=== PATIENT | female | born 1965 | race African-American/Black ===

== ENCOUNTER 2021-08-23 11:45 | Inpatient (IN) ==
[2021-08-23 14:12] LABS: Bacteria,Urine Many /HPF (Few); Glucose,Urine (UA) 100 mg/dL (Negative); Ketones,Urine 40 mg/dL (Negative); Protein,Urine 100 mg/dL (Negative); RBC,Urine 17 /HPF (0-4); Squamous Epithelial Cell,Urine Many /HPF (0-10); Urine Appearance Slightly Cloudy (Clear); Urine Color Dark Yellow (Yellow); Urine Specific Gravity 1.025 (1.001-1.035)
[2021-08-23 14:13] LABS: Bilirubin,Urine Large mg/dL (Negative); Blood, Urine Moderate mg/dL (Negative); Nitrite,Urine Negative (Negative); Urine Urobilinogen 0.2 eU/dL (<2.0)
[2021-08-23 14:23] LABS: Basophils % 0.7 % (0.0-0.8); Eosinophils # 0.1 10*3/uL (0.0-0.87); Eosinophils % 0.8 % (0.00-10.9); Hematocrit 40.1 VOL% (35.7-47.0); Hemoglobin 13.3 GM/DL (12.0-16.0); Immature Granulocytes % 0.2 %; Immature Granulocytes Absolute 0.01 #; Lymphocytes # 1.9 10*3/uL (1.4-4.0); Lymphocytes % 31.5 % (21.3-54.2); Mean Corpuscular HGB Conc 33.2 GM/DL (32-36); Mean Corpuscular Volume 88.5 FL (87-102); Mean Platelet Volume 12.9 FL (9.6-12.0); Monocytes # 0.4 10*3/uL (0.11-0.8); Monocytes % 6.9 % (1.7-12.7); Neutrophils % 59.9 % (38.7-73.9); Platelet Count 226 T/CUMM (130-400); Red Blood Count 4.53 MC/CUMM (3.8-5.5); Red Cell Distribution Width 16.2 % (9.3-17.3); White Blood Count 5.9 T/CUMM (4-12)
[2021-08-23] MEDS ORDERED: LABETALOL 20 MG/4 ML SYRINGE IV STA (14:32)
[2021-08-23 14:36] LABS: INR 1.4; PT Patient Result 14.8 SECS (10.5-12.0)
[2021-08-23] MEDS ORDERED: hydrALAZINE 20 MG/1 ML VIAL IV STA ×2 (14:37→15:03)
[2021-08-23 14:38] LABS: Albumin 3.5 G/DL (3.4-5.0); Calcium 9.8 MG/DL (8.5-10.1); Osmolality,Calculated 278.7 MOS/KG (273-304); Potassium 3.1 MMOL/L (3.5-5.1); Total Protein 7.8 G/DL (6.4-8.2)
[2021-08-23 14:45] LABS: Bilirubin,Total 18.2 MG/DL (0.20-1.00)
[2021-08-23] MEDS ORDERED: cloNIDine 0.1 MG TABLET PO STA (15:26)
[2021-08-23] MEDS ORDERED: PIPERACILLIN/TAZOBACTAM 3,375 MG in SODIUM CHLORIDE 0.9% 100 ML IV STA (16:45)
[2021-08-23] MEDS ORDERED: DEXTROSE 10% 250 ML BAG IV PRN (17:43)
[2021-08-23] MEDS ORDERED: GLUCAGON 1 MG VIAL IM PRN (17:43)
[2021-08-23] MEDS ORDERED: ONDANSETRON 4 MG/2 ML VIAL IV PRN (17:43)
[2021-08-23 19:26] LABS: Albumin 3.4 G/DL (3.4-5.0); Bilirubin,Direct 13.35 MG/DL (0.0-0.20); Total Protein 8.2 G/DL (6.4-8.2)
[2021-08-23 19:30] LABS: Bilirubin,Indirect 4.3 MG/DL (0.0-1.0); Bilirubin,Total 17.6 MG/DL (0.20-1.00)
[2021-08-23] MEDS: SODIUM CHLORIDE 0.9% 1,000 ML IV SCH (19:55)
[2021-08-23] MEDS: cefTRIAXone 1,000 MG in SODIUM CHLORIDE 0.9% 100 ML IV SCH (22:17)
[2021-08-24 06:16] LABS: Basophils # 0.1 10*3/uL (0.0-0.2); Basophils % 0.7 % (0.0-0.8); Eosinophils % 0.4 % (0.00-10.9); Hematocrit 32.8 VOL% (35.7-47.0); Hemoglobin 11.3 GM/DL (12.0-16.0); Immature Granulocytes % 0.3 %; Immature Granulocytes Absolute 0.02 #; Lymphocytes # 1.7 10*3/uL (1.4-4.0); Lymphocytes % 24.6 % (21.3-54.2); Mean Corpuscular HGB Conc 34.5 GM/DL (32-36); Mean Corpuscular Volume 87.5 FL (87-102); Monocytes # 0.8 10*3/uL (0.11-0.8); Monocytes % 11.7 % (1.7-12.7); Neutrophils % 62.3 % (38.7-73.9); Platelet Count 185 T/CUMM (130-400); Red Blood Count 3.75 MC/CUMM (3.8-5.5); Red Cell Distribution Width 16.4 % (9.3-17.3); White Blood Count 6.9 T/CUMM (4-12)
[2021-08-24 07:30] LABS: Albumin 2.8 G/DL (3.4-5.0); Calcium 9.3 MG/DL (8.5-10.1); Osmolality,Calculated 283.4 MOS/KG (273-304); Potassium 3.2 MMOL/L (3.5-5.1); Risk Ratio 21.36; Thyroid Stimulating Hormone 1.05 uIU/ml (0.358-3.74); Total Protein 6.2 G/DL (6.4-8.2)
[2021-08-24 07:48] LABS: Bilirubin,Total 14.7 MG/DL (0.20-1.00)
[2021-08-24] MEDS ORDERED: POTASSIUM CHLORIDE 20 MEQ TABLET PO ONE ×2 (08:55→16:21)
[2021-08-24] MEDS: PANTOPRAZOLE 40 MG VIAL IV SCH (09:51)
[2021-08-24] MEDS: POTASSIUM CHLORIDE RIDER 10 MEQ/100 ML PREMIX IV PRN ×2 (10:05→12:08)
[2021-08-24 10:19] LABS: AFP Tumor 4.3 NG/ML (0-8); Carcinoembryonic Antigen 1.7 NG/ML (0.0-5.0)
[2021-08-24 10:51] LABS: Hepatitis B Core IgM Quant 0.12 Index; Hepatitis B Surface Ag Quant < 0.10 Index; Hepatitis B Surface Ag Result Non-Reactive (NonReactive); Hepatitis C Virus Ab Quant < 0.02 Index; Hepatitis C Virus Ab Result Non-Reactive (NonReactive)
[2021-08-24] MEDS: SODIUM CHLORIDE 0.9% 1,000 ML IV SCH ×2 (12:11→21:22)
[2021-08-24] MEDS ORDERED: SODIUM CHLOR 0.9% KCL 20 MEQ 20 MEQ/1,000 ML BAG IV SCH (14:00)
[2021-08-24] MEDS: hydrALAZINE 20 MG/1 ML VIAL IV PRN (17:44)
[2021-08-24] MEDS: cefTRIAXone 1,000 MG in SODIUM CHLORIDE 0.9% 100 ML IV SCH (20:11)
[2021-08-24] MEDS: EZETIMIBE 10 MG TABLET PO SCH (20:12)
[2021-08-25 06:14] LABS: Basophils # 0.1 10*3/uL (0.0-0.2); Basophils % 1.1 % (0.0-0.8); Eosinophils # 0.1 10*3/uL (0.0-0.87); Eosinophils % 1.5 % (0.00-10.9); Hematocrit 34.5 VOL% (35.7-47.0); Hemoglobin 11.8 GM/DL (12.0-16.0); Lymphocytes # 2.2 10*3/uL (1.4-4.0); Lymphocytes % 29.8 % (21.3-54.2); Mean Corpuscular HGB Conc 34.2 GM/DL (32-36); Mean Corpuscular Volume 86.9 FL (87-102); Mean Platelet Volume 13.9 FL (9.6-12.0); Monocytes # 0.7 10*3/uL (0.11-0.8); Monocytes % 9.6 % (1.7-12.7); Neutrophils % 57.6 % (38.7-73.9); Platelet Count 207 T/CUMM (130-400); Red Blood Count 3.97 MC/CUMM (3.8-5.5); Red Cell Distribution Width 17.2 % (9.3-17.3); White Blood Count 7.5 T/CUMM (4-12)
[2021-08-25 06:21] LABS: INR 1.4
[2021-08-25 06:26] LABS: Calcium 9.4 MG/DL (8.5-10.1); Osmolality,Calculated 287.3 MOS/KG (273-304); Potassium 3.4 MMOL/L (3.5-5.1)
[2021-08-25 06:40] LABS: Eosinophils 4 % (0-10); Lymphocytes 20 % (20-55); Platelet Estimate Adequate
[2021-08-25 06:41] LABS: Target Cells Slight
[2021-08-25] MEDS ORDERED: INDOMETHACIN SUPP 50 MG SUPP RECTAL ONE (08:00)
[2021-08-25] MEDS: PANTOPRAZOLE 40 MG VIAL IV SCH (09:51)
[2021-08-25 09:57] LABS: Albumin 2.9 G/DL (3.4-5.0); Calcium 9.4 MG/DL (8.5-10.1); Osmolality,Calculated 286.3 MOS/KG (273-304); Potassium 3.3 MMOL/L (3.5-5.1)
[2021-08-25 10:08] LABS: Bilirubin,Direct 12.86 MG/DL (0.0-0.20); Total Protein 7.1 G/DL (6.4-8.2)
[2021-08-25 10:12] LABS: Bilirubin,Indirect 4.1 MG/DL (0.0-1.0)
[2021-08-25] MEDS: LACTATED RINGERS 1,000 ML IV SCH (11:57)
[2021-08-25] MEDS ORDERED: LABETALOL 20 MG/4 ML SYRINGE IV ONE (12:00)
[2021-08-25] MEDS: hydrALAZINE 20 MG/1 ML VIAL IV PRN ×2 (12:06→12:32)
[2021-08-25] MEDS ORDERED: amLODIPine 10 MG TABLET PO ONE (12:30)
[2021-08-25] MEDS ORDERED: MIDAZOLAM 2 MG/2 ML VIAL ONE (12:39)
[2021-08-25] MEDS ORDERED: fentaNYL 100 MCG/2 ML VIAL ONE (12:39)
[2021-08-25] MEDS ORDERED: LIDOCAINE 2% 5 ML VIAL ONE (13:46)
[2021-08-25] MEDS ORDERED: propofoL 200 MG/20 ML VIAL IV ONE (13:46)
[2021-08-25] MEDS ORDERED: SUCCINYLCHOLINE 200 MG/10 ML VIAL ONE (13:47)
[2021-08-25] MEDS ORDERED: ROCURONIUM 50 MG/5 ML VIAL IV ONE (13:47)
[2021-08-25] MEDS ORDERED: SEVOFLURANE 1 UNIT/15 MINUTE INH ONE (13:47)
[2021-08-25] MEDS: SODIUM CHLORIDE 0.9% 1,000 ML IV SCH ×3 (20:18→23:54)
[2021-08-25] MEDS: cefTRIAXone 1,000 MG in SODIUM CHLORIDE 0.9% 100 ML IV SCH (21:15)
[2021-08-25] MEDS: EZETIMIBE 10 MG TABLET PO SCH (21:15)
[2021-08-26] MEDS: hydrALAZINE 20 MG/1 ML VIAL IV PRN (00:29)
[2021-08-26 06:00] LABS: Basophils % 0.4 % (0.0-0.8); Eosinophils # 0.1 10*3/uL (0.0-0.87); Eosinophils % 1.2 % (0.00-10.9); Hematocrit 32.7 VOL% (35.7-47.0); Hemoglobin 10.8 GM/DL (12.0-16.0); Immature Granulocytes % 0.5 %; Immature Granulocytes Absolute 0.04 #; Lymphocytes # 2.4 10*3/uL (1.4-4.0); Lymphocytes % 29.2 % (21.3-54.2); Mean Corpuscular Volume 90.1 FL (87-102); Mean Platelet Volume 13.7 FL (9.6-12.0); Monocytes # 0.9 10*3/uL (0.11-0.8); Monocytes % 10.8 % (1.7-12.7); Neutrophils % 57.9 % (38.7-73.9); Platelet Count 177 T/CUMM (130-400); Red Blood Count 3.63 MC/CUMM (3.8-5.5); White Blood Count 8.1 T/CUMM (4-12)
[2021-08-26 06:22] LABS: Eosinophils 3 % (0-10); Lymphocytes 32 % (20-55); Total Cells Counted 100
[2021-08-26 06:23] LABS: Platelet Estimate Normal
[2021-08-26 07:10] LABS: Albumin 2.9 G/DL (3.4-5.0); Bilirubin,Direct 5.2 MG/DL (0.0-0.20); Bilirubin,Total 7.4 MG/DL (0.20-1.00); Calcium 9.1 MG/DL (8.5-10.1); Osmolality,Calculated 283.3 MOS/KG (273-304); Potassium 3.1 MMOL/L (3.5-5.1); Total Protein 6.3 G/DL (6.4-8.2)
[2021-08-26] MEDS ORDERED: POTASSIUM CHLORIDE 20 MEQ TABLET PO ONE (08:43)
[2021-08-26] MEDS: amLODIPine 10 MG TABLET PO SCH (09:31)
[2021-08-26] MEDS: PANTOPRAZOLE 40 MG VIAL IV SCH (09:35)
[2021-08-26] MEDS: LACTATED RINGERS 1,000 ML IV SCH (10:11)
[2021-08-26] MEDS: SODIUM CHLORIDE 0.9% 1,000 ML IV SCH ×2 (11:15→22:01)
[2021-08-26] MEDS: cefTRIAXone 1,000 MG in SODIUM CHLORIDE 0.9% 100 ML IV SCH (20:47)
[2021-08-26] MEDS: EZETIMIBE 10 MG TABLET PO SCH (20:47)
[2021-08-27] MEDS: SODIUM CHLORIDE 0.9% 1,000 ML IV SCH (00:35)
[2021-08-27 05:19] LABS: Basophils # 0.1 10*3/uL (0.0-0.2); Basophils % 0.9 % (0.0-0.8); Eosinophils # 0.2 10*3/uL (0.0-0.87); Hematocrit 32.1 VOL% (35.7-47.0); Hemoglobin 10.4 GM/DL (12.0-16.0); Immature Granulocytes % 0.3 %; Immature Granulocytes Absolute 0.02 #; Lymphocytes # 2.5 10*3/uL (1.4-4.0); Lymphocytes % 35.2 % (21.3-54.2); Mean Corpuscular HGB Conc 32.4 GM/DL (32-36); Mean Corpuscular Volume 92.5 FL (87-102); Mean Platelet Volume 13.4 FL (9.6-12.0); Monocytes # 0.7 10*3/uL (0.11-0.8); Monocytes % 10.2 % (1.7-12.7); Neutrophils % 50.4 % (38.7-73.9); Platelet Count 174 T/CUMM (130-400); Red Blood Count 3.47 MC/CUMM (3.8-5.5); Red Cell Distribution Width 15.6 % (9.3-17.3); White Blood Count 7.1 T/CUMM (4-12)
[2021-08-27 05:43] LABS: Albumin 2.6 G/DL (3.4-5.0); Bilirubin,Total 5.5 MG/DL (0.20-1.00); Calcium 8.8 MG/DL (8.5-10.1); Osmolality,Calculated 280.4 MOS/KG (273-304); Potassium 3.2 MMOL/L (3.5-5.1); Total Protein 6.4 G/DL (6.4-8.2)
[2021-08-27] MEDS ORDERED: POTASSIUM CHLORIDE 20 MEQ TABLET PO ONE (07:40)
[2021-08-27] MEDS ORDERED: POTASSIUM CHLORIDE 20 MEQ TABLET PO SCH (09:00)
[2021-08-27] MEDS: LACTATED RINGERS 1,000 ML IV SCH (09:22)
[2021-08-27 09:27] LABS: Folate 9.2 NG/ML (5.38-24.0)
[2021-08-27] MEDS: PANTOPRAZOLE 40 MG VIAL IV SCH (09:29)
[2021-08-27] MEDS: amLODIPine 10 MG TABLET PO SCH (09:29)
[2021-08-27] MEDS: LOSARTAN 25 MG TABLET PO SCH (09:29)
[2021-08-27] MEDS: EZETIMIBE 10 MG TABLET PO SCH (20:48)
[2021-08-27] MEDS: cefTRIAXone 1,000 MG in SODIUM CHLORIDE 0.9% 100 ML IV SCH (20:56)
[2021-08-28 06:18] LABS: Basophils # 0.1 10*3/uL (0.0-0.2); Basophils % 1.2 % (0.0-0.8); Eosinophils # 0.3 10*3/uL (0.0-0.87); Eosinophils % 3.3 % (0.00-10.9); Hematocrit 33.6 VOL% (35.7-47.0); Hemoglobin 10.6 GM/DL (12.0-16.0); Immature Granulocytes % 0.3 %; Immature Granulocytes Absolute 0.02 #; Lymphocytes # 2.6 10*3/uL (1.4-4.0); Lymphocytes % 34.2 % (21.3-54.2); Mean Corpuscular HGB Conc 31.5 GM/DL (32-36); Mean Corpuscular Volume 95.5 FL (87-102); Mean Platelet Volume 14.2 FL (9.6-12.0); Monocytes # 0.9 10*3/uL (0.11-0.8); Monocytes % 11.8 % (1.7-12.7); Neutrophils % 49.2 % (38.7-73.9); Platelet Count 199 T/CUMM (130-400); Red Blood Count 3.52 MC/CUMM (3.8-5.5); Red Cell Distribution Width 14.7 % (9.3-17.3); White Blood Count 7.5 T/CUMM (4-12)
[2021-08-28 06:34] LABS: Albumin 2.8 G/DL (3.4-5.0); Bilirubin,Total 5.3 MG/DL (0.20-1.00); Calcium 8.8 MG/DL (8.5-10.1); Osmolality,Calculated 281.3 MOS/KG (273-304); Potassium 3.2 MMOL/L (3.5-5.1); Total Protein 6.8 G/DL (6.4-8.2)
[2021-08-28] MEDS ORDERED: POTASSIUM CHLORIDE 20 MEQ TABLET PO ONE (08:30)
[2021-08-28] MEDS: LACTATED RINGERS 1,000 ML IV SCH (08:54)
[2021-08-28] MEDS: PANTOPRAZOLE 40 MG VIAL IV SCH (08:57)
[2021-08-28] MEDS: LOSARTAN 25 MG TABLET PO SCH (08:59)
[2021-08-28] MEDS: amLODIPine 10 MG TABLET PO SCH (08:59)
[2021-08-28] MEDS ORDERED: CHOLECALCIFEROL 5,000 UNIT TABLET PO SCH (09:00)
[2021-08-28 12:14] VITALS: BP 156/79
== END 2021-08-28 16:55 | disposition home or self-care (01) | DRG 446 ==
LOC: N.ED 11:45 → N.EDINP 17:44 → N.3E 20:24
PROVIDERS: ADMIT Internal Medicine; ATTEND Internal Medicine

== ENCOUNTER 2021-10-26 09:09 | Inpatient (IN) ==
[2021-10-26] MEDS ORDERED: SODIUM CHLORIDE 0.9% 1,000 ML IV STA ×2 (15:08→17:44)
[2021-10-26 15:46] LABS: Arterial Base Excess iSTAT -20 MMOL/L (-2.5-2.5); Arterial Bicarbonate iSTAT 4.5 MMOL/L (20-26); Arterial O2 Saturation iSTAT 98 % (95-100); Arterial PCO2 iSTAT 11 MM HG (35-48); Arterial PO2 iSTAT 112 MM HG (80-95); Arterial Total CO2 iSTAT < 5 MMO/L (23-27); Arterial pH iSTAT 7.237 (7.35-7.45)
[2021-10-26 16:57] LABS: Basophils % 0.2 % (0.0-0.8); Hematocrit 42.6 VOL% (35.7-47.0); Hemoglobin 13.2 GM/DL (12.0-16.0); Immature Granulocytes Absolute 0.17 #; Lymphocytes # 0.4 10*3/uL (1.4-4.0); Lymphocytes % 2.6 % (21.3-54.2); Mean Corpuscular Volume 98.6 FL (87-102); Monocytes # 0.7 10*3/uL (0.11-0.8); Monocytes % 4.4 % (1.7-12.7); Neutrophils % 91.8 % (38.7-73.9); Platelet Count 159 T/CUMM (130-400); Red Blood Count 4.32 MC/CUMM (3.8-5.5); White Blood Count 16.2 T/CUMM (4-12)
[2021-10-26 17:21] LABS: INR 1.1; PT Patient Result 12.2 SECS (10.5-12.0); Partial Thromboplastin Time 24.7 SECS (23.7-32.9)
[2021-10-26] MEDS ORDERED: cefTRIAXone 1,000 MG in SODIUM CHLORIDE 0.9% 100 ML IV STA (17:44)
[2021-10-26 18:00] LABS: Chloride 99 MMOL/L (98-107); Potassium 3.1 MMOL/L (3.5-5.1); Sodium 135 MMOL/L (136-145)
[2021-10-26 18:02] LABS: Albumin 2.8 G/DL (3.4-5.0); Blood Urea Nitrogen 37 MG/DL (7-18); Carbon Dioxide 7 MMOL/L (21-32)
[2021-10-26 18:08] LABS: Alanine Aminotransferase 179 U/L (13-56); Amylase 15 U/L (25-115); Aspartate Amino Transferase 342 U/L (0-37); Osmolality,Calculated 308.1 MOS/KG (273-304); Total Protein 7.5 G/DL (6.4-8.2)
[2021-10-26] MEDS ORDERED: SODIUM BICARBONATE 50 MEQ/50 ML VIAL IV STA (18:10)
[2021-10-26 18:16] LABS: Alkaline Phosphatase 913 U/L (45-117)
[2021-10-26 18:18] LABS: Glucose 646 MG/DL (74-106)
[2021-10-26] MEDS ORDERED: SODIUM BICARB INJ 100 MEQ in STERILE WATER INJ 400 ML IV PRN (18:39)
[2021-10-26] MEDS ORDERED: SODIUM CHLORIDE 0.9% IV PRN (18:39)
[2021-10-26] MEDS ORDERED: INSULIN REGULAR 100 UNIT/ML IV ONE (18:39)
[2021-10-26] MEDS ORDERED: SODIUM PHOSPHATE IV PRN (18:39)
[2021-10-26] MEDS ORDERED: MAGNESIUM SULF RIDER 4 GM/100 ML PREMIX IV PRN (18:39)
[2021-10-26] MEDS ORDERED: SODIUM CHLORIDE 0.9% 1,000 ML IV ONE (18:39)
[2021-10-26] MEDS ORDERED: POTASSIUM CHLORIDE RIDER 10 MEQ/100 ML PREMIX IV PRN (18:39)
[2021-10-26] MEDS ORDERED: ONDANSETRON 4 MG/2 ML VIAL IV PRN (18:39)
[2021-10-26] MEDS ORDERED: DEXTROSE 10% 250 ML BAG IV PRN ×2 (19:10)
[2021-10-26 19:14] LABS: Calcium 8.4 MG/DL (8.5-10.1); Osmolality,Calculated 316.4 MOS/KG (273-304); Potassium 2.8 MMOL/L (3.5-5.1)
[2021-10-26 19:17] LABS: Phosphorous 2.7 MG/DL (2.5-4.9)
[2021-10-26 20:03] LABS: Band Neutrophils 2 % (0-10); Burr Cells Few; Lymphocytes 5 % (20-55); Metamyelocytes 2 %; Platelet Estimate Normal; Total Cells Counted 100
[2021-10-26 20:18] LABS: Amorphous Crystals,Urine Occasional /HPF (Few); Mucus,Urine Occasional /LPF (Occasional); RBC,Urine 1 /HPF (0-4); Squamous Epithelial Cell,Urine Occasional /HPF (0-10)
[2021-10-26 20:19] LABS: Glucose,Urine (UA) >=1000 mg/dL (Negative); Ketones,Urine >=160 mg/dL (Negative); Nitrite,Urine Negative (Negative); Protein,Urine 100 mg/dL (Negative); Urine Appearance Clear (Clear); Urine Color Yellow (Yellow); Urine pH 5.5 (4.5-8.0)
[2021-10-26 20:20] LABS: Bilirubin,Urine Small mg/dL (Negative); Blood, Urine Moderate mg/dL (Negative)
[2021-10-26] MEDS: SODIUM CHLORIDE 0.9% 1,000 ML IV SCH ×2 (20:24→22:39)
[2021-10-26] MEDS ORDERED: POTASSIUM CHLORIDE 20 MEQ TABLET PO ONE ×2 (20:26→20:55)
[2021-10-26] MEDS: PANTOPRAZOLE 40 MG VIAL IV SCH (21:35)
[2021-10-26] MEDS: ENOXAPARIN 30 MG/0.3 ML SYRINGE SUBCUT SCH (21:35)
[2021-10-26] MEDS ORDERED: NOREPINEPHRINE 4 MG/4 ML VIAL IV ONE (22:13)
[2021-10-26] MEDS: NOREPINEPHRINE 8 MG in SODIUM CHLORIDE 0.9% 242 ML IV PRN (22:17)
[2021-10-26] MEDS: INSULIN REGULAR DRIP 100 ML IV SCH (23:00)
[2021-10-26 23:20] LABS: ABG Base Excess -11.6 MMOL/L (-2.5-2.5); ABG HCO3 15.3 MMOL/L (20-26); ABG Oxygen Saturation 95.5 % (95-100); ABG PH 7.441 (7.35-7.45); ABG PO2 69.7 MM HG (80-95); ABG TCO2 9.9 MMOL/L (23-27)
[2021-10-26 23:22] LABS: ABG PCO2 16.1 MM HG (35-48)
[2021-10-26 23:28] LABS: Calcium 8.5 MG/DL (8.5-10.1); Osmolality,Calculated 309.7 MOS/KG (273-304); Potassium 2.8 MMOL/L (3.5-5.1)
[2021-10-26] MEDS ORDERED: LACTATED RINGERS 500 ML IV ONE (23:29)
[2021-10-26] MEDS ORDERED: PHENYLEPHRINE DRIP 40 MG/250 ML PREMIX IV ONE (23:29)
[2021-10-26] MEDS: PHENYLEPHRINE DRIP 40 MG/250 ML PREMIX IV PRN (23:31)
[2021-10-26] MEDS ORDERED: ACETAMINOPHEN 325 MG TABLET PO ONE (23:38)
[2021-10-26] MEDS ORDERED: ACETAMINOPHEN 325 MG TABLET ONE (23:39)
[2021-10-26] MEDS ORDERED: SODIUM CHLORIDE 0.9% 1,000 ML IV SCH (23:45)
[2021-10-27 01:26] LABS: Calcium 8.2 MG/DL (8.5-10.1); Osmolality,Calculated 309.4 MOS/KG (273-304)
[2021-10-27] MEDS: PIPERACILLIN/TAZOBACTAM 3,375 MG in SODIUM CHLORIDE 0.9% 100 ML IV SCH ×3 (01:35→21:30)
[2021-10-27 01:36] LABS: ABG Base Excess -13.4 MMOL/L (-2.5-2.5); ABG HCO3 14.1 MMOL/L (20-26); ABG Oxygen Saturation 95.5 % (95-100); ABG PH 7.421 (7.35-7.45); ABG PO2 72.3 MM HG (80-95); ABG TCO2 8.8 MMOL/L (23-27)
[2021-10-27 01:37] LABS: Potassium 2.3 MMOL/L (3.5-5.1)
[2021-10-27 01:38] LABS: ABG PCO2 14.9 MM HG (35-48)
[2021-10-27 01:43] LABS: Basophils % 0.2 % (0.0-0.8); Hematocrit 31.1 VOL% (35.7-47.0); Hemoglobin 10.4 GM/DL (12.0-16.0); Immature Granulocytes % 0.6 %; Immature Granulocytes Absolute 0.03 #; Lymphocytes # 0.4 10*3/uL (1.4-4.0); Lymphocytes % 7.4 % (21.3-54.2); Mean Corpuscular HGB Conc 33.4 GM/DL (32-36); Mean Corpuscular Volume 92.8 FL (87-102); Mean Platelet Volume 13.5 FL (9.6-12.0); Monocytes # 0.1 10*3/uL (0.11-0.8); Neutrophils % 90.8 % (38.7-73.9); Platelet Count 94 T/CUMM (130-400); Red Blood Count 3.35 MC/CUMM (3.8-5.5); Red Cell Distribution Width 14.1 % (9.3-17.3)
[2021-10-27 02:06] LABS: Lymphocytes 22 % (20-55); Total Cells Counted 100
[2021-10-27 02:07] LABS: Giant Platelets 1+
[2021-10-27 02:08] LABS: Platelet Estimate Adequate
[2021-10-27] MEDS: POTASSIUM CHLORIDE RIDER 20 MEQ/100 ML PREMIX IV PRN ×3 (02:10→05:51)
[2021-10-27] MEDS: MAGNESIUM SULF RIDER 2 GM/50 ML PREMIX IV PRN (02:10)
[2021-10-27] MEDS ORDERED: LACTATED RINGERS 500 ML IV ONE ×2 (02:22→04:32)
[2021-10-27 03:53] LABS: Albumin 1.6 G/DL (3.4-5.0); Bilirubin,Total 5.7 MG/DL (0.20-1.00); Calcium 7.8 MG/DL (8.5-10.1); Osmolality,Calculated 312.9 MOS/KG (273-304); Phosphorous 0.2 MG/DL (2.5-4.9); Potassium 2.6 MMOL/L (3.5-5.1); Total Protein 4.7 G/DL (6.4-8.2)
[2021-10-27] MEDS: PHENYLEPHRINE DRIP 40 MG/250 ML PREMIX IV PRN (04:28)
[2021-10-27] MEDS ORDERED: VASOPRESSIN 100 UNITS in SODIUM CHLORIDE 0.9% 95 ML IV PRN (04:32)
[2021-10-27 05:08] LABS: Basophils % 0.2 % (0.0-0.8); Hematocrit 29.1 VOL% (35.7-47.0); Hemoglobin 9.8 GM/DL (12.0-16.0); Immature Granulocytes % 2.1 %; Immature Granulocytes Absolute 0.38 #; Lymphocytes # 0.8 10*3/uL (1.4-4.0); Lymphocytes % 4.5 % (21.3-54.2); Mean Corpuscular HGB Conc 33.7 GM/DL (32-36); Mean Corpuscular Volume 92.7 FL (87-102); Mean Platelet Volume 14.3 FL (9.6-12.0); Monocytes # 0.5 10*3/uL (0.11-0.8); Monocytes % 2.5 % (1.7-12.7); Neutrophils % 90.7 % (38.7-73.9); Platelet Count 85 T/CUMM (130-400); Red Blood Count 3.14 MC/CUMM (3.8-5.5); White Blood Count 17.9 T/CUMM (4-12)
[2021-10-27 05:37] LABS: Band Neutrophils 10 % (0-10); Lymphocytes 8 % (20-55); Platelet Estimate Decreased; Total Cells Counted 100
[2021-10-27] MEDS: DEXTROSE 5% NACL 0.45% 1,000 ML IV SCH ×6 (05:42→22:21)
[2021-10-27] MEDS ORDERED: PHENYLEPHRINE INJ 160 MG in SODIUM CHLORIDE 0.9% 234 ML IV PRN (06:00)
[2021-10-27] MEDS ORDERED: LACTATED RINGERS 2,000 ML IV ONE (07:12)
[2021-10-27 07:43] LABS: Osmolality,Calculated 310.9 MOS/KG (273-304); Potassium 2.7 MMOL/L (3.5-5.1)
[2021-10-27 07:46] LABS: Amylase 16 U/L (25-115)
[2021-10-27] MEDS ORDERED: DEXTROSE 5% IV SCH ×2 (09:30→11:00)
[2021-10-27] MEDS ORDERED: NACL 0.45% IV SCH ×2 (09:30→11:00)
[2021-10-27] MEDS ORDERED: POTASSIUM CHLORIDE IV SCH ×2 (09:30→11:00)
[2021-10-27] MEDS: SODIUM CHLORIDE 0.45% 1,000 ML IV SCH ×2 (11:19→20:00)
[2021-10-27 11:26] LABS: Creatinine,Urine Random < 13 MG/DL
[2021-10-27] MEDS ORDERED: NACL 0.45% IV ONE (11:30)
[2021-10-27] MEDS ORDERED: DEXTROSE 5% IV ONE (11:30)
[2021-10-27] MEDS ORDERED: POTASSIUM CHLORIDE IV ONE (11:30)
[2021-10-27 12:27] LABS: Albumin 1.6 G/DL (3.4-5.0); Bilirubin,Total 6.8 MG/DL (0.20-1.00); Calcium 8.1 MG/DL (8.5-10.1); Osmolality,Calculated 305.3 MOS/KG (273-304); Total Protein 4.8 G/DL (6.4-8.2)
[2021-10-27 12:31] LABS: Potassium 2.5 MMOL/L (3.5-5.1)
[2021-10-27] MEDS ORDERED: NOREPINEPHRINE 4 MG/4 ML VIAL IV ONE (14:21)
[2021-10-27 14:31] LABS: ABG Base Excess -9.2 MMOL/L (-2.5-2.5); ABG HCO3 17.1 MMOL/L (20-26); ABG Oxygen Saturation 94.7 % (95-100); ABG PCO2 32.5 MM HG (35-48); ABG PH 7.307 (7.35-7.45); ABG PO2 76.7 MM HG (80-95); ABG TCO2 14.8 MMOL/L (23-27)
[2021-10-27] MEDS: NOREPINEPHRINE 8 MG in SODIUM CHLORIDE 0.9% 242 ML IV PRN (14:37)
[2021-10-27 15:02] LABS: Calcium 8.4 MG/DL (8.5-10.1); Osmolality,Calculated 302.4 MOS/KG (273-304); Potassium 3.3 MMOL/L (3.5-5.1)
[2021-10-27] MEDS: INSULIN REGULAR DRIP 100 ML IV SCH (18:18)
[2021-10-27 20:23] LABS: Calcium 8.4 MG/DL (8.5-10.1); Osmolality,Calculated 302.4 MOS/KG (273-304); Potassium 3.6 MMOL/L (3.5-5.1)
[2021-10-27] MEDS: PANTOPRAZOLE 40 MG VIAL IV SCH (21:30)
[2021-10-27] MEDS: ENOXAPARIN 30 MG/0.3 ML SYRINGE SUBCUT SCH (21:30)
[2021-10-27 22:10] LABS: ABG Base Excess -9.5 MMOL/L (-2.5-2.5); ABG HCO3 16.8 MMOL/L (20-26); ABG Oxygen Saturation 98.2 % (95-100); ABG PCO2 28.1 MM HG (35-48); ABG PH 7.342 (7.35-7.45); ABG TCO2 14.2 MMOL/L (23-27)
[2021-10-28 00:13] LABS: Albumin 1.7 G/DL (3.4-5.0); Bilirubin,Total 9.8 MG/DL (0.20-1.00); Calcium 8.6 MG/DL (8.5-10.1); Osmolality,Calculated 296.7 MOS/KG (273-304); Potassium 3.3 MMOL/L (3.5-5.1); Total Protein 4.8 G/DL (6.4-8.2)
[2021-10-28] MEDS: DEXTROSE 5% NACL 0.45% 1,000 ML IV SCH ×10 (00:20→23:56)
[2021-10-28 04:02] LABS: ABG Base Excess -9.5 MMOL/L (-2.5-2.5); ABG HCO3 16.8 MMOL/L (20-26); ABG Oxygen Saturation 98.8 % (95-100); ABG PCO2 27.9 MM HG (35-48); ABG PH 7.341 (7.35-7.45); ABG TCO2 13.7 MMOL/L (23-27)
[2021-10-28 04:08] LABS: Basophils # 0.1 10*3/uL (0.0-0.2); Basophils % 0.4 % (0.0-0.8); Hematocrit 25.2 VOL% (35.7-47.0); Hemoglobin 8.2 GM/DL (12.0-16.0); Immature Granulocytes % 24.4 %; Lymphocytes % 7.2 % (21.3-54.2); Mean Corpuscular HGB Conc 32.5 GM/DL (32-36); Mean Corpuscular Volume 93.3 FL (87-102); Mean Platelet Volume 14.9 FL (9.6-12.0); Monocytes # 1.7 10*3/uL (0.11-0.8); Monocytes % 6.2 % (1.7-12.7); Neutrophils % 61.8 % (38.7-73.9); Red Cell Distribution Width 14.8 % (9.3-17.3); White Blood Count 27.1 T/CUMM (4-12)
[2021-10-28 04:22] LABS: Platelet Count 23 T/CUMM (130-400)
[2021-10-28 04:25] LABS: Albumin 1.7 G/DL (3.4-5.0); Bilirubin,Total 10.2 MG/DL (0.20-1.00); Calcium 8.6 MG/DL (8.5-10.1); Osmolality,Calculated 297.7 MOS/KG (273-304); Potassium 3.2 MMOL/L (3.5-5.1); Total Protein 4.7 G/DL (6.4-8.2)
[2021-10-28 04:33] LABS: Band Neutrophils 4 % (0-10); Lymphocytes 11 % (20-55); Total Cells Counted 100
[2021-10-28 04:34] LABS: Platelet Estimate Decreased
[2021-10-28] MEDS: SODIUM CHLORIDE 0.45% 1,000 ML IV SCH ×3 (04:41→22:05)
[2021-10-28] MEDS: NOREPINEPHRINE 8 MG in SODIUM CHLORIDE 0.9% 242 ML IV PRN ×2 (04:41→22:41)
[2021-10-28 04:50] LABS: Cholesterol 65 MG/DL (50-200); HDL Cholesterol < 10 MG/DL (40-60); Triglycerides 194 MG/DL (2-150); VLDL Cholesterol 38.8 MG/DL
[2021-10-28 04:53] LABS: Phosphorous 0.2 MG/DL (2.5-4.9)
[2021-10-28] MEDS: POTASSIUM CHLORIDE RIDER 20 MEQ/100 ML PREMIX IV PRN ×3 (04:59→14:17)
[2021-10-28] MEDS: PIPERACILLIN/TAZOBACTAM 3,375 MG in SODIUM CHLORIDE 0.9% 100 ML IV SCH (05:02)
[2021-10-28] MEDS: MORPHINE 2 MG/1 ML SYRINGE IV PRN ×3 (08:54→22:30)
[2021-10-28 09:03] LABS: Calcium 8.5 MG/DL (8.5-10.1); Potassium 3.5 MMOL/L (3.5-5.1)
[2021-10-28] MEDS ORDERED: GENTAMICIN INJ 80 MG/50 ML PREMIX IV ONE (11:41)
[2021-10-28 13:26] LABS: Basophils # 0.1 10*3/uL (0.0-0.2); Basophils % 0.4 % (0.0-0.8); Eosinophils % 0.1 % (0.00-10.9); Hematocrit 24.1 VOL% (35.7-47.0); Hemoglobin 7.9 GM/DL (12.0-16.0); Immature Granulocytes % 30.5 %; Immature Granulocytes Absolute 8.25 #; Lymphocytes # 2.4 10*3/uL (1.4-4.0); Lymphocytes % 8.7 % (21.3-54.2); Mean Corpuscular HGB Conc 32.8 GM/DL (32-36); Mean Corpuscular Volume 93.8 FL (87-102); Monocytes # 1.4 10*3/uL (0.11-0.8); Monocytes % 5.1 % (1.7-12.7); NRBC # 0.02 10*3/uL; Neutrophils % 55.2 % (38.7-73.9); Red Blood Count 2.57 MC/CUMM (3.8-5.5); Red Cell Distribution Width 14.9 % (9.3-17.3); White Blood Count 27.1 T/CUMM (4-12)
[2021-10-28 13:30] LABS: Platelet Count 17 T/CUMM (130-400)
[2021-10-28 13:36] LABS: INR 1.2; PT Patient Result 12.9 SECS (10.5-12.0); Partial Thromboplastin Time 34.6 SECS (23.7-32.9)
[2021-10-28 13:42] LABS: Albumin 1.5 G/DL (3.4-5.0); Bilirubin,Total 9.2 MG/DL (0.20-1.00); Calcium 8.7 MG/DL (8.5-10.1); Osmolality,Calculated 297.7 MOS/KG (273-304); Potassium 3.4 MMOL/L (3.5-5.1); Total Protein 4.8 G/DL (6.4-8.2)
[2021-10-28 14:09] LABS: Band Neutrophils 10 % (0-10); Burr Cells 1+; Hypochromia Slight; Lymphocytes 11 % (20-55); Total Cells Counted 100
[2021-10-28 14:10] LABS: Platelet Estimate Decreased
[2021-10-28] MEDS ORDERED: SODIUM BICARBONATE 50 MEQ/50 ML VIAL IV ONE (14:57)
[2021-10-28] MEDS: MEROPENEM 500 MG in SODIUM CHLORIDE 0.9% 100 ML IV SCH (17:10)
[2021-10-28] MEDS: INSULIN REGULAR DRIP 100 ML IV SCH ×2 (17:44→22:05)
[2021-10-28 18:34] LABS: ABG Base Excess -7.9 MMOL/L (-2.5-2.5); ABG Oxygen Saturation 97.7 % (95-100); ABG PCO2 28.7 MM HG (35-48); ABG PH 7.366 (7.35-7.45); ABG PO2 87.3 MM HG (80-95); ABG TCO2 15.3 MMOL/L (23-27)
[2021-10-28 18:50] LABS: Calcium 8.4 MG/DL (8.5-10.1); Osmolality,Calculated 300.6 MOS/KG (273-304); Potassium 3.3 MMOL/L (3.5-5.1)
[2021-10-28 20:27] LABS: Basophils # 0.1 10*3/uL (0.0-0.2); Basophils % 0.3 % (0.0-0.8); Eosinophils # 0.1 10*3/uL (0.0-0.87); Eosinophils % 0.3 % (0.00-10.9); Hematocrit 22.1 VOL% (35.7-47.0); Hemoglobin 7.3 GM/DL (12.0-16.0); Immature Granulocytes % 0.9 %; Immature Granulocytes Absolute 0.22 #; Lymphocytes # 2.6 10*3/uL (1.4-4.0); Lymphocytes % 10.5 % (21.3-54.2); Mean Corpuscular Volume 93.2 FL (87-102); NRBC # 0.03 10*3/uL; Red Blood Count 2.37 MC/CUMM (3.8-5.5); Red Cell Distribution Width 15.3 % (9.3-17.3); White Blood Count 24.3 T/CUMM (4-12)
[2021-10-28 20:30] LABS: Platelet Count 17 T/CUMM (130-400)
[2021-10-28 20:54] LABS: Band Neutrophils 4 % (0-10); Eosinophils 2 % (0-10); Lymphocytes 12 % (20-55); Total Cells Counted 100
[2021-10-28 20:55] LABS: Platelet Estimate Decreased
[2021-10-28] MEDS ORDERED: SODIUM CHLORIDE 0.9% 1,000 ML IV PRN (20:56)
[2021-10-28 20:58] LABS: Burr Cells Few
[2021-10-28 23:29] LABS: Albumin 1.4 G/DL (3.4-5.0); Bilirubin,Total 7.6 MG/DL (0.20-1.00); Calcium 8.5 MG/DL (8.5-10.1); Osmolality,Calculated 301.6 MOS/KG (273-304); Potassium 3.3 MMOL/L (3.5-5.1); Total Protein 4.5 G/DL (6.4-8.2)
[2021-10-29] MEDS: POTASSIUM CHLORIDE RIDER 20 MEQ/100 ML PREMIX IV PRN ×3 (00:20→06:52)
[2021-10-29] MEDS: MAGNESIUM SULF RIDER 2 GM/50 ML PREMIX IV PRN (00:36)
[2021-10-29 01:57] LABS: Basophils % 0.2 % (0.0-0.8); Eosinophils # 0.2 10*3/uL (0.0-0.87); Eosinophils % 0.7 % (0.00-10.9); Hemoglobin 6.9 GM/DL (12.0-16.0); Lymphocytes # 2.5 10*3/uL (1.4-4.0); Mean Corpuscular HGB Conc 32.9 GM/DL (32-36); Mean Platelet Volume 13.5 FL (9.6-12.0); Monocytes % 4.4 % (1.7-12.7); Neutrophils % 82.7 % (38.7-73.9); Red Blood Count 2.21 MC/CUMM (3.8-5.5); Red Cell Distribution Width 15.8 % (9.3-17.3)
[2021-10-29 02:06] LABS: Immature Granulocytes Absolute 0.23 #
[2021-10-29 02:07] LABS: Platelet Count 43 T/CUMM (130-400)
[2021-10-29] MEDS ORDERED: SODIUM CHLORIDE 0.9% 1,000 ML IV PRN ×4 (02:13→08:16)
[2021-10-29 02:25] LABS: Band Neutrophils 6 % (0-10); Eosinophils 2 % (0-10); Lymphocytes 11 % (20-55); Nucleated Red Blood Cells 19 (0-5); Total Cells Counted 100
[2021-10-29 02:26] LABS: Platelet Estimate Decreased
[2021-10-29 02:27] LABS: Acanthocytes Few; Burr Cells Few
[2021-10-29] MEDS: MEROPENEM 500 MG in SODIUM CHLORIDE 0.9% 100 ML IV SCH (02:28)
[2021-10-29] MEDS: DEXTROSE 5% NACL 0.45% 1,000 ML IV SCH ×7 (02:28→20:48)
[2021-10-29 03:27] LABS: Arterial Bicarbonate iSTAT 15.7 MMOL/L (20-26); Arterial pH iSTAT 7.303 (7.35-7.45)
[2021-10-29 03:40] LABS: Albumin 1.5 G/DL (3.4-5.0); Bilirubin,Total 7.4 MG/DL (0.20-1.00); Calcium 8.3 MG/DL (8.5-10.1); Osmolality,Calculated 298.7 MOS/KG (273-304); Potassium 3.5 MMOL/L (3.5-5.1); Total Protein 4.8 G/DL (6.4-8.2)
[2021-10-29] MEDS ORDERED: SODIUM BICARB INJ 50 MEQ in DEXTROSE 5% 1,000 ML IV SCH (04:00)
[2021-10-29] MEDS ORDERED: SODIUM BICARBONATE 50 MEQ/50 ML VIAL IV ONE ×2 (04:00→09:07)
[2021-10-29] MEDS: SODIUM CHLORIDE 0.45% 1,000 ML IV SCH (04:19)
[2021-10-29 06:13] LABS: Basophils % 0.1 % (0.0-0.8); Eosinophils # 0.2 10*3/uL (0.0-0.87); Hematocrit 20.6 VOL% (35.7-47.0); Hemoglobin 6.8 GM/DL (12.0-16.0); Immature Granulocytes % 1.2 %; Immature Granulocytes Absolute 0.27 #; Lymphocytes # 2.6 10*3/uL (1.4-4.0); Lymphocytes % 11.9 % (21.3-54.2); Mean Corpuscular Volume 93.2 FL (87-102); Mean Platelet Volume 14.4 FL (9.6-12.0); Monocytes # 0.9 10*3/uL (0.11-0.8); Monocytes % 4.3 % (1.7-12.7); NRBC # 0.07 10*3/uL; Neutrophils % 81.5 % (38.7-73.9); Red Blood Count 2.21 MC/CUMM (3.8-5.5); Red Cell Distribution Width 15.9 % (9.3-17.3); White Blood Count 21.7 T/CUMM (4-12)
[2021-10-29 06:18] LABS: Platelet Count 33 T/CUMM (130-400)
[2021-10-29] MEDS ORDERED: SODIUM CHLORIDE 0.9% IV ONE (06:30)
[2021-10-29] MEDS ORDERED: SODIUM PHOSPHATE IV ONE (06:30)
[2021-10-29 08:51] LABS: Bilirubin,Urine Small mg/dL (Negative); Blood, Urine Moderate mg/dL (Negative); Glucose,Urine (UA) Negative (Negative); Ketones,Urine Negative (Negative); Nitrite,Urine Negative (Negative); Protein,Urine Trace mg/dL (Negative); Urine Appearance Cloudy (Clear); Urine Color Yellow (Yellow); Urine Urobilinogen 0.2 eU/dL (<2.0)
[2021-10-29 08:56] LABS: Amorphous Crystals,Urine Occasional /HPF (Few); Mucus,Urine Occasional /LPF (Occasional); Red Blood Cell Casts,Urine 9 /LPF (<1); Squamous Epithelial Cell,Urine Occasional /HPF (0-10)
[2021-10-29 09:40] LABS: Band Neutrophils 3 % (0-10); Eosinophils 3 % (0-10); Lymphocytes 13 % (20-55); Total Cells Counted 100
[2021-10-29 09:42] LABS: Acanthocytes Few
[2021-10-29 09:44] LABS: Platelet Estimate Decreased; Target Cells Slight
[2021-10-29] MEDS ORDERED: GLUCAGON 1 MG VIAL IM PRN (11:26)
[2021-10-29] MEDS ORDERED: FUROSEMIDE 40 MG/4 ML VIAL IV ONE ×2 (11:27→20:00)
[2021-10-29] MEDS ORDERED: DEXTROSE 10% 250 ML BAG IV PRN (11:37)
[2021-10-29] MEDS: LEVOFLOXACIN INJ 750 MG/150 ML PREMIX IV SCH (12:41)
[2021-10-29 14:09] LABS: Basophils # 0.1 10*3/uL (0.0-0.2); Basophils % 0.3 % (0.0-0.8); Eosinophils # 0.2 10*3/uL (0.0-0.87); Eosinophils % 1.4 % (0.00-10.9); Hematocrit 28.7 VOL% (35.7-47.0); Hemoglobin 9.5 GM/DL (12.0-16.0); Immature Granulocytes % 1.6 %; Immature Granulocytes Absolute 0.27 #; Lymphocytes # 1.9 10*3/uL (1.4-4.0); Lymphocytes % 11.5 % (21.3-54.2); Mean Corpuscular HGB Conc 33.1 GM/DL (32-36); Mean Corpuscular Volume 88.9 FL (87-102); Monocytes # 0.8 10*3/uL (0.11-0.8); Monocytes % 4.9 % (1.7-12.7); NRBC # 0.09 10*3/uL; Neutrophils % 80.3 % (38.7-73.9); Red Blood Count 3.23 MC/CUMM (3.8-5.5); Red Cell Distribution Width 17.7 % (9.3-17.3); White Blood Count 16.7 T/CUMM (4-12)
[2021-10-29 14:12] LABS: Platelet Count 25 T/CUMM (130-400)
[2021-10-29 14:31] LABS: Albumin 1.4 G/DL (3.4-5.0); Bilirubin,Total 8.9 MG/DL (0.20-1.00); Osmolality,Calculated 300.8 MOS/KG (273-304); Potassium 3.9 MMOL/L (3.5-5.1); Total Protein 4.7 G/DL (6.4-8.2)
[2021-10-29 14:55] LABS: Band Neutrophils 1 % (0-10); Lymphocytes 10 % (20-55); Total Cells Counted 100
[2021-10-29 14:57] LABS: Acanthocytes Few; Burr Cells Slight
[2021-10-29 14:59] LABS: Target Cells Slight
[2021-10-29 15:00] LABS: Platelet Estimate Decreased
[2021-10-29] MEDS: INSULIN LISPRO 100 UNIT/ML SUBCUT SCH ×3 (15:38→23:34)
[2021-10-29] MEDS: MORPHINE 2 MG/1 ML SYRINGE IV PRN (18:00)
[2021-10-30] MEDS: MORPHINE 2 MG/1 ML SYRINGE IV PRN ×2 (01:15→10:33)
[2021-10-30 02:22] LABS: ABG Base Excess -0.1 MMOL/L (-2.5-2.5); ABG HCO3 24.3 MMOL/L (20-26); ABG Oxygen Saturation 97.9 % (95-100); ABG PCO2 29.8 MM HG (35-48); ABG PH 7.488 (7.35-7.45); ABG PO2 87.5 MM HG (80-95); ABG TCO2 20.6 MMOL/L (23-27)
[2021-10-30] MEDS: NOREPINEPHRINE 8 MG in SODIUM CHLORIDE 0.9% 242 ML IV PRN ×2 (02:30→19:08)
[2021-10-30 02:34] LABS: Basophils % 0.3 % (0.0-0.8); Eosinophils # 0.1 10*3/uL (0.0-0.87); Hematocrit 28.2 VOL% (35.7-47.0); Hemoglobin 9.5 GM/DL (12.0-16.0); Immature Granulocytes % 4.4 %; Immature Granulocytes Absolute 0.56 #; Lymphocytes # 2.2 10*3/uL (1.4-4.0); Lymphocytes % 17.2 % (21.3-54.2); Mean Corpuscular HGB Conc 33.7 GM/DL (32-36); Mean Corpuscular Volume 87.6 FL (87-102); NRBC # 0.17 10*3/uL; Neutrophils % 69.1 % (38.7-73.9); Red Blood Count 3.22 MC/CUMM (3.8-5.5); Red Cell Distribution Width 18.9 % (9.3-17.3); White Blood Count 12.6 T/CUMM (4-12)
[2021-10-30 02:40] LABS: Platelet Count 27 T/CUMM (130-400)
[2021-10-30 02:41] LABS: INR 1.3; PT Patient Result 14.4 SECS (10.5-12.0); Partial Thromboplastin Time 30.8 SECS (23.7-32.9)
[2021-10-30 02:58] LABS: % Iron Saturation 90.4 % (18-50); Ferritin 3235.5 ng/mL (8-252)
[2021-10-30 03:01] LABS: Eosinophils 2 % (0-10); Lymphocytes 22 % (20-55); Total Cells Counted 100
[2021-10-30 03:02] LABS: Platelet Estimate Decreased
[2021-10-30 03:21] LABS: Albumin 1.3 G/DL (3.4-5.0); Calcium 8.4 MG/DL (8.5-10.1); Osmolality,Calculated 302.8 MOS/KG (273-304); Phosphorous 0.9 MG/DL (2.5-4.9); Potassium 3.8 MMOL/L (3.5-5.1); Total Protein 4.7 G/DL (6.4-8.2)
[2021-10-30 03:24] LABS: Bilirubin,Total 13.4 MG/DL (0.20-1.00)
[2021-10-30] MEDS: INSULIN LISPRO 100 UNIT/ML SUBCUT SCH ×7 (03:28→23:46)
[2021-10-30] MEDS ORDERED: SODIUM CHLORIDE 0.9% IV PRN (03:35)
[2021-10-30] MEDS ORDERED: SODIUM PHOSPHATE IV PRN (03:35)
[2021-10-30 03:39] LABS: Sedimentation Rate-Westergren 99 MM/HR (0-30)
[2021-10-30] MEDS: MAGNESIUM SULF RIDER 2 GM/50 ML PREMIX IV PRN (03:40)
[2021-10-30] MEDS ORDERED: SODIUM PHOSPHATE IV ONE (04:00)
[2021-10-30] MEDS ORDERED: SODIUM CHLORIDE 0.9% IV ONE (04:00)
[2021-10-30 06:33] LABS: Folate 2.98 NG/ML (5.38-24.0); Vitamin B12 > 2000 PG/ML (211-911)
[2021-10-30] MEDS: DEXTROSE 5% NACL 0.45% 1,000 ML IV SCH ×4 (06:46→23:44)
[2021-10-30 10:01] LABS: Hemoglobin A1 (Alkaline) 97.9 % (96.5-98.5); Hemoglobin A2 (Alkaline) 2.1 % (1.5-3.5)
[2021-10-30] MEDS ORDERED: SODIUM CHLORIDE 0.9% 1,000 ML IV PRN (12:37)
[2021-10-30] MEDS ORDERED: POTASSIUM PHOSPHATE 30 MMOL in SODIUM CHLORIDE 0.9% 250 ML IV ONE (20:00)
[2021-10-30] MEDS: FAMOTIDINE 20 MG/2 ML VIAL IV SCH (20:41)
[2021-10-31 03:57] LABS: Basophils % 0.3 % (0.0-0.8); Eosinophils # 0.1 10*3/uL (0.0-0.87); Eosinophils % 0.8 % (0.00-10.9); Hematocrit 27.1 VOL% (35.7-47.0); Hemoglobin 9.2 GM/DL (12.0-16.0); Immature Granulocytes % 8.3 %; Immature Granulocytes Absolute 1.07 #; Lymphocytes # 2.5 10*3/uL (1.4-4.0); Lymphocytes % 19.6 % (21.3-54.2); Mean Corpuscular HGB Conc 33.9 GM/DL (32-36); Mean Corpuscular Volume 86.6 FL (87-102); Monocytes # 1.8 10*3/uL (0.11-0.8); Monocytes % 13.8 % (1.7-12.7); NRBC # 0.11 10*3/uL; Neutrophils % 57.2 % (38.7-73.9); Red Blood Count 3.13 MC/CUMM (3.8-5.5); Red Cell Distribution Width 19.6 % (9.3-17.3); White Blood Count 12.8 T/CUMM (4-12)
[2021-10-31 04:07] LABS: Platelet Count 31 T/CUMM (130-400)
[2021-10-31 04:11] LABS: Albumin 1.6 G/DL (3.4-5.0); Calcium 8.1 MG/DL (8.5-10.1); Osmolality,Calculated 295.5 MOS/KG (273-304); Phosphorous 3.9 MG/DL (2.5-4.9); Potassium 3.7 MMOL/L (3.5-5.1)
[2021-10-31 04:13] LABS: Bilirubin,Total 17.6 MG/DL (0.20-1.00)
[2021-10-31 04:15] LABS: Band Neutrophils 1 % (0-10); Eosinophils 2 % (0-10); Lymphocytes 20 % (20-55); Nucleated Red Blood Cells 1 (0-5); Total Cells Counted 100
[2021-10-31 04:16] LABS: Anisocytosis 1+; Hypochromia 1+; Microcytosis 1+
[2021-10-31 04:17] LABS: Burr Cells Slight; Platelet Estimate Decreased
[2021-10-31] MEDS: INSULIN LISPRO 100 UNIT/ML SUBCUT SCH ×6 (04:28→23:00)
[2021-10-31] MEDS: MORPHINE 2 MG/1 ML SYRINGE IV PRN (04:39)
[2021-10-31] MEDS: DEXTROSE 5% NACL 0.45% 1,000 ML IV SCH ×3 (06:39→22:15)
[2021-10-31] MEDS: POTASSIUM CHLORIDE RIDER 20 MEQ/100 ML PREMIX IV PRN (06:40)
[2021-10-31] MEDS ORDERED: SODIUM CHLORIDE 0.9% 1,000 ML IV SCH (08:00)
[2021-10-31] MEDS ORDERED: INDOMETHACIN SUPP 50 MG SUPP RECTAL ONE (08:00)
[2021-10-31] MEDS: FAMOTIDINE 20 MG/2 ML VIAL IV SCH ×2 (08:59→20:45)
[2021-10-31] MEDS ORDERED: LIDOCAINE 2% 5 ML VIAL ONE (09:23)
[2021-10-31] MEDS ORDERED: ETOMIDATE 40 MG/20 ML VIAL IV ONE (09:23)
[2021-10-31] MEDS ORDERED: fentaNYL 100 MCG/2 ML VIAL ONE (09:23)
[2021-10-31] MEDS ORDERED: SUCCINYLCHOLINE 200 MG/10 ML VIAL ONE (09:23)
[2021-10-31] MEDS ORDERED: SEVOFLURANE 1 UNIT/15 MINUTE INH ONE (10:03)
[2021-10-31] MEDS ORDERED: PHENYLEPHRINE 1 MG/10 ML SYRINGE IV ONE ×2 (10:03→10:42)
[2021-10-31] MEDS ORDERED: MIDAZOLAM 2 MG/2 ML VIAL ONE (10:19)
[2021-10-31] MEDS ORDERED: propofoL 200 MG/20 ML VIAL IV ONE (10:28)
[2021-10-31] MEDS ORDERED: ONDANSETRON 4 MG/2 ML VIAL ONE (10:29)
[2021-10-31] MEDS: LEVOFLOXACIN INJ 750 MG/150 ML PREMIX IV SCH (12:22)
[2021-10-31 21:21] LABS: HIT Interpretation Negative (Negative)
[2021-11-01] MEDS: DEXTROSE 5% NACL 0.45% 1,000 ML IV SCH ×2 (03:16→16:33)
[2021-11-01 03:38] LABS: Basophils % 0.2 % (0.0-0.8); Eosinophils # 0.2 10*3/uL (0.0-0.87); Eosinophils % 1.2 % (0.00-10.9); Hematocrit 21.6 VOL% (35.7-47.0); Immature Granulocytes % 10.1 %; Immature Granulocytes Absolute 1.73 #; Lymphocytes % 23.6 % (21.3-54.2); Mean Corpuscular HGB Conc 32.4 GM/DL (32-36); Mean Corpuscular Volume 89.6 FL (87-102); Mean Platelet Volume 13.4 FL (9.6-12.0); Monocytes # 1.9 10*3/uL (0.11-0.8); Monocytes % 11.1 % (1.7-12.7); Neutrophils % 53.8 % (38.7-73.9); Platelet Count 50 T/CUMM (130-400); Red Blood Count 2.41 MC/CUMM (3.8-5.5); Red Cell Distribution Width 20.3 % (9.3-17.3); White Blood Count 17.1 T/CUMM (4-12)
[2021-11-01] MEDS: INSULIN LISPRO 100 UNIT/ML SUBCUT SCH ×6 (03:45→23:57)
[2021-11-01 03:59] LABS: Albumin 1.4 G/DL (3.4-5.0); Bilirubin,Total 10.1 MG/DL (0.20-1.00); Calcium 7.5 MG/DL (8.5-10.1); Potassium 3.6 MMOL/L (3.5-5.1); Total Protein 4.6 G/DL (6.4-8.2)
[2021-11-01 04:02] LABS: Band Neutrophils 4 % (0-10); Eosinophils 1 % (0-10); Hypochromia 1+; Lymphocytes 23 % (20-55); Metamyelocytes 2 %; Nucleated Red Blood Cells 1 (0-5); Promyelocytes 1 %; Total Cells Counted 100
[2021-11-01 04:03] LABS: Microcytosis 1+; Polychromasia Slight
[2021-11-01 04:04] LABS: Platelet Estimate Decreased
[2021-11-01] MEDS: POTASSIUM CHLORIDE RIDER 20 MEQ/100 ML PREMIX IV PRN (06:30)
[2021-11-01] MEDS: MAGNESIUM SULF RIDER 2 GM/50 ML PREMIX IV PRN (06:30)
[2021-11-01 08:28] LABS: Basophils % 0.1 % (0.0-0.8); Eosinophils # 0.3 10*3/uL (0.0-0.87); Eosinophils % 1.5 % (0.00-10.9); Hematocrit 20.8 VOL% (35.7-47.0); Hemoglobin 6.9 GM/DL (12.0-16.0); Immature Granulocytes % 9.9 %; Immature Granulocytes Absolute 1.62 #; Lymphocytes # 3.3 10*3/uL (1.4-4.0); Mean Corpuscular HGB Conc 33.2 GM/DL (32-36); Mean Corpuscular Volume 88.5 FL (87-102); Mean Platelet Volume 13.9 FL (9.6-12.0); Monocytes # 1.5 10*3/uL (0.11-0.8); NRBC # 0.08 10*3/uL; Neutrophils % 59.5 % (38.7-73.9); Platelet Count 50 T/CUMM (130-400); Red Blood Count 2.35 MC/CUMM (3.8-5.5); Red Cell Distribution Width 20.2 % (9.3-17.3); White Blood Count 16.3 T/CUMM (4-12)
[2021-11-01 08:46] LABS: Band Neutrophils 2 % (0-10); Eosinophils 5 % (0-10); Hypochromia 1+; Lymphocytes 18 % (20-55); Microcytosis 1+; Platelet Estimate Decreased; Promyelocytes 1 %; Target Cells Slight; Total Cells Counted 100
[2021-11-01 08:47] LABS: Anisocytosis 1+
[2021-11-01] MEDS ORDERED: SODIUM CHLORIDE 0.9% 1,000 ML IV PRN (09:04)
[2021-11-01] MEDS: FAMOTIDINE 20 MG/2 ML VIAL IV SCH ×2 (09:48→20:35)
[2021-11-01] MEDS: chlorproMAZINE 25 MG TABLET PO SCH ×2 (16:33→20:33)
[2021-11-02] MEDS: DEXTROSE 5% NACL 0.45% 1,000 ML IV SCH ×2 (04:28→17:29)
[2021-11-02] MEDS: INSULIN LISPRO 100 UNIT/ML SUBCUT SCH ×4 (05:03→16:24)
[2021-11-02 05:12] LABS: Basophils # 0.1 10*3/uL (0.0-0.2); Basophils % 0.5 % (0.0-0.8); Eosinophils # 0.2 10*3/uL (0.0-0.87); Eosinophils % 1.3 % (0.00-10.9); Hemoglobin 9.6 GM/DL (12.0-16.0); Immature Granulocytes % 10.7 %; Immature Granulocytes Absolute 1.91 #; Lymphocytes # 4.2 10*3/uL (1.4-4.0); Lymphocytes % 23.5 % (21.3-54.2); Mean Corpuscular HGB Conc 33.1 GM/DL (32-36); Mean Corpuscular Volume 86.8 FL (87-102); Monocytes # 1.9 10*3/uL (0.11-0.8); Monocytes % 10.9 % (1.7-12.7); NRBC # 0.06 10*3/uL; Neutrophils % 53.1 % (38.7-73.9); Platelet Count 61 T/CUMM (130-400); Red Blood Count 3.34 MC/CUMM (3.8-5.5); Red Cell Distribution Width 18.4 % (9.3-17.3); White Blood Count 17.8 T/CUMM (4-12)
[2021-11-02 05:29] LABS: Albumin 1.5 G/DL (3.4-5.0); Bilirubin,Total 4.7 MG/DL (0.20-1.00); Osmolality,Calculated 289.5 MOS/KG (273-304); Phosphorous 2.6 MG/DL (2.5-4.9); Potassium 3.4 MMOL/L (3.5-5.1)
[2021-11-02 05:40] LABS: Anisocytosis 1+; Band Neutrophils 6 % (0-10); Eosinophils 1 % (0-10); Hypochromia 1+; Lymphocytes 21 % (20-55); Metamyelocytes 1 %; Microcytosis 1+; Myelocytes 1 %; Polychromasia Slight; Promyelocytes 2 %; Target Cells Slight; Total Cells Counted 100
[2021-11-02 05:41] LABS: Platelet Estimate Decreased
[2021-11-02] MEDS: POTASSIUM CHLORIDE RIDER 20 MEQ/100 ML PREMIX IV PRN ×2 (06:19→06:24)
[2021-11-02] MEDS ORDERED: FAMOTIDINE 20 MG/2 ML VIAL IV SCH (09:00)
[2021-11-02] MEDS: FAMOTIDINE 20 MG/2 ML VIAL IV SCH (09:00)
[2021-11-02] MEDS: LEVOFLOXACIN INJ 750 MG/150 ML PREMIX IV SCH (13:57)
[2021-11-03] MEDS: INSULIN LISPRO 100 UNIT/ML SUBCUT SCH ×6 (00:56→20:34)
[2021-11-03 05:06] LABS: Basophils # 0.1 10*3/uL (0.0-0.2); Basophils % 0.5 % (0.0-0.8); Eosinophils # 0.2 10*3/uL (0.0-0.87); Eosinophils % 1.1 % (0.00-10.9); Hemoglobin 10.9 GM/DL (12.0-16.0); Immature Granulocytes % 8.2 %; Immature Granulocytes Absolute 1.25 #; Lymphocytes # 3.4 10*3/uL (1.4-4.0); Lymphocytes % 22.1 % (21.3-54.2); Mean Corpuscular Volume 87.5 FL (87-102); Mean Platelet Volume 12.3 FL (9.6-12.0); Monocytes # 1.6 10*3/uL (0.11-0.8); Monocytes % 10.3 % (1.7-12.7); NRBC # 0.04 10*3/uL; Neutrophils % 57.8 % (38.7-73.9); Platelet Count 93 T/CUMM (130-400); Red Blood Count 3.77 MC/CUMM (3.8-5.5); Red Cell Distribution Width 18.8 % (9.3-17.3); White Blood Count 15.3 T/CUMM (4-12)
[2021-11-03] MEDS: DEXTROSE 5% NACL 0.45% 1,000 ML IV SCH (05:55)
[2021-11-03 06:00] LABS: Anisocytosis 1+; Band Neutrophils 9 % (0-10); Burr Cells Few; Lymphocytes 20 % (20-55); Macrocytosis Slight; Myelocytes 1 %; Platelet Estimate Decreased; Total Cells Counted 100
[2021-11-03 06:01] LABS: Atypical Lymphocytes Few
[2021-11-03] MEDS: FAMOTIDINE 20 MG TABLET PO SCH (08:55)
[2021-11-03] MEDS: MORPHINE 2 MG/1 ML SYRINGE IV PRN (20:35)
[2021-11-03] MEDS: INSULIN GLARGINE 100 UNIT/ML SUBCUT SCH (20:35)
[2021-11-04 05:21] LABS: Basophils # 0.1 10*3/uL (0.0-0.2); Basophils % 0.4 % (0.0-0.8); Eosinophils # 0.1 10*3/uL (0.0-0.87); Hematocrit 28.2 VOL% (35.7-47.0); Hemoglobin 9.5 GM/DL (12.0-16.0); Immature Granulocytes % 6.1 %; Immature Granulocytes Absolute 0.69 #; Lymphocytes # 2.7 10*3/uL (1.4-4.0); Lymphocytes % 23.9 % (21.3-54.2); Mean Corpuscular HGB Conc 33.7 GM/DL (32-36); Mean Corpuscular Volume 86.5 FL (87-102); Monocytes # 1.5 10*3/uL (0.11-0.8); Monocytes % 13.3 % (1.7-12.7); Neutrophils % 55.3 % (38.7-73.9); Platelet Count 100 T/CUMM (130-400); Red Blood Count 3.26 MC/CUMM (3.8-5.5); Red Cell Distribution Width 19.1 % (9.3-17.3); White Blood Count 11.3 T/CUMM (4-12)
[2021-11-04 05:41] LABS: Albumin 1.8 G/DL (3.4-5.0); Bilirubin,Total 3.6 MG/DL (0.20-1.00); Calcium 7.7 MG/DL (8.5-10.1); Potassium 3.3 MMOL/L (3.5-5.1); Total Protein 5.5 G/DL (6.4-8.2)
[2021-11-04 05:46] LABS: Band Neutrophils 1 % (0-10); Eosinophils 5 % (0-10); Hypochromia Slight; Lymphocytes 17 % (20-55); Microcytosis Slight; Platelet Estimate Decreased; Total Cells Counted 100
[2021-11-04] MEDS: FOLIC ACID 1 MG TABLET PO SCH (09:11)
[2021-11-04] MEDS: FAMOTIDINE 20 MG TABLET PO SCH (09:11)
[2021-11-04] MEDS: INSULIN LISPRO 100 UNIT/ML SUBCUT SCH ×4 (09:12→20:36)
[2021-11-04] MEDS ORDERED: POTASSIUM CHLORIDE 20 MEQ TABLET PO ONE (11:43)
[2021-11-04] MEDS: LEVOFLOXACIN INJ 750 MG/150 ML PREMIX IV SCH (12:13)
[2021-11-04] MEDS: EZETIMIBE 10 MG TABLET PO SCH (20:33)
[2021-11-04] MEDS: INSULIN GLARGINE 100 UNIT/ML SUBCUT SCH (20:35)
[2021-11-05 05:28] LABS: Basophils # 0.1 10*3/uL (0.0-0.2); Basophils % 0.5 % (0.0-0.8); Eosinophils # 0.1 10*3/uL (0.0-0.87); Eosinophils % 1.2 % (0.00-10.9); Hematocrit 31.1 VOL% (35.7-47.0); Hemoglobin 10.6 GM/DL (12.0-16.0); Immature Granulocytes % 4.3 %; Immature Granulocytes Absolute 0.41 #; Lymphocytes % 21.2 % (21.3-54.2); Mean Corpuscular HGB Conc 34.1 GM/DL (32-36); Mean Corpuscular Volume 88.4 FL (87-102); Mean Platelet Volume 12.7 FL (9.6-12.0); Monocytes # 1.2 10*3/uL (0.11-0.8); Monocytes % 12.6 % (1.7-12.7); Neutrophils % 60.2 % (38.7-73.9); Platelet Count 140 T/CUMM (130-400); Red Blood Count 3.52 MC/CUMM (3.8-5.5); Red Cell Distribution Width 19.7 % (9.3-17.3); White Blood Count 9.5 T/CUMM (4-12)
[2021-11-05 05:47] LABS: Calcium 8.4 MG/DL (8.5-10.1); Osmolality,Calculated 277.8 MOS/KG (273-304); Potassium 3.1 MMOL/L (3.5-5.1)
[2021-11-05] MEDS: INSULIN LISPRO 100 UNIT/ML SUBCUT SCH ×4 (09:34→21:13)
[2021-11-05] MEDS: FAMOTIDINE 20 MG TABLET PO SCH (09:34)
[2021-11-05] MEDS: FOLIC ACID 1 MG TABLET PO SCH (09:34)
[2021-11-05] MEDS: amLODIPine 5 MG TABLET PO SCH (09:34)
[2021-11-05] MEDS: MAGNESIUM SULF RIDER 2 GM/50 ML PREMIX IV PRN (09:34)
[2021-11-05] MEDS: CHOLECALCIFEROL 5,000 UNIT TABLET PO SCH (09:34)
[2021-11-05] MEDS ORDERED: POTASSIUM CHLORIDE 20 MEQ TABLET PO ONE (14:13)
[2021-11-05] MEDS ORDERED: MAGNESIUM SULF RIDER 2 GM/50 ML PREMIX IV ONE (14:13)
[2021-11-05] MEDS: EZETIMIBE 10 MG TABLET PO SCH (21:13)
[2021-11-05] MEDS: INSULIN GLARGINE 100 UNIT/ML SUBCUT SCH (21:13)
[2021-11-06 05:23] LABS: Basophils # 0.1 10*3/uL (0.0-0.2); Basophils % 0.7 % (0.0-0.8); Eosinophils # 0.1 10*3/uL (0.0-0.87); Hematocrit 31.8 VOL% (35.7-47.0); Hemoglobin 10.2 GM/DL (12.0-16.0); Immature Granulocytes % 1.9 %; Immature Granulocytes Absolute 0.17 #; Lymphocytes % 23.2 % (21.3-54.2); Mean Corpuscular HGB Conc 32.1 GM/DL (32-36); Mean Corpuscular Volume 89.8 FL (87-102); Mean Platelet Volume 12.2 FL (9.6-12.0); Monocytes # 1.3 10*3/uL (0.11-0.8); Monocytes % 15.1 % (1.7-12.7); Neutrophils % 58.1 % (38.7-73.9); Platelet Count 142 T/CUMM (130-400); Red Blood Count 3.54 MC/CUMM (3.8-5.5); Red Cell Distribution Width 19.9 % (9.3-17.3); White Blood Count 8.7 T/CUMM (4-12)
[2021-11-06 05:42] LABS: Calcium 8.5 MG/DL (8.5-10.1); Osmolality,Calculated 274.7 MOS/KG (273-304); Potassium 3.1 MMOL/L (3.5-5.1)
[2021-11-06 05:50] LABS: Albumin 2.4 G/DL (3.4-5.0); Bilirubin,Total 3.7 MG/DL (0.20-1.00); Calcium 8.7 MG/DL (8.5-10.1); Osmolality,Calculated 276.5 MOS/KG (273-304); Potassium 3.4 MMOL/L (3.5-5.1); Total Protein 6.5 G/DL (6.4-8.2)
[2021-11-06] MEDS: FOLIC ACID 1 MG TABLET PO SCH (08:44)
[2021-11-06] MEDS: amLODIPine 5 MG TABLET PO SCH (08:44)
[2021-11-06] MEDS: FAMOTIDINE 20 MG TABLET PO SCH (08:44)
[2021-11-06] MEDS: CHOLECALCIFEROL 5,000 UNIT TABLET PO SCH (08:44)
[2021-11-06] MEDS: INSULIN LISPRO 100 UNIT/ML SUBCUT SCH ×2 (09:03→11:29)
[2021-11-06] MEDS ORDERED: ONDANSETRON ODT 4 MG TABLET PO PRN (11:36)
[2021-11-06] MEDS ORDERED: POTASSIUM CHLORIDE 20 MEQ TABLET PO ONE (12:00)
[2021-11-06] MEDS ORDERED: MAGNESIUM SULF RIDER 2 GM/50 ML PREMIX IV ONE (12:00)
[2021-11-06 12:14] VITALS: BP 140/88
[2021-11-06] MEDS: LEVOFLOXACIN INJ 750 MG/150 ML PREMIX IV SCH (12:14)
[2021-11-08] MEDS ORDERED: LEVOFLOXACIN 500 MG TABLET PO SCH (09:00)
== END 2021-11-06 15:45 | disposition home or self-care (01) | DRG 871 ==
LOC: N.ED 09:09 → SUATTDRO 18:39 → N.EDINP 18:39 → N.CC 19:22 → N.3E 11-02 15:49
PROVIDERS: ADMIT Family Medicine; ATTEND Internal Medicine
PROC: ERCPWST (ICD-10-PCS; 2021-10-31 13:05)

== ENCOUNTER 2021-12-10 17:19 | Inpatient (IN) ==
[2021-12-10] MEDS ORDERED: SODIUM CHLORIDE 0.9% 1,000 ML IV STA ×2 (18:23→22:12)
[2021-12-10 19:04] LABS: Basophils % 0.1 % (0.0-0.8); Hematocrit 35.2 VOL% (35.7-47.0); Hemoglobin 11.3 GM/DL (12.0-16.0); Immature Granulocytes % 2.8 %; Immature Granulocytes Absolute 0.38 #; Lymphocytes # 2.7 10*3/uL (1.4-4.0); Lymphocytes % 20.1 % (21.3-54.2); Mean Corpuscular HGB Conc 32.1 GM/DL (32-36); Mean Platelet Volume 11.8 FL (9.6-12.0); Monocytes # 1.5 10*3/uL (0.11-0.8); Monocytes % 10.7 % (1.7-12.7); NRBC # 0.02 10*3/uL; Neutrophils % 66.3 % (38.7-73.9); Platelet Count 131 T/CUMM (130-400); Red Blood Count 3.63 MC/CUMM (3.8-5.5); Red Cell Distribution Width 26.2 % (9.3-17.3); White Blood Count 13.6 T/CUMM (4-12)
[2021-12-10 20:10] LABS: Alanine Aminotransferase 523 U/L (13-56); Albumin 1.4 G/DL (3.4-5.0); Aspartate Amino Transferase 2017 U/L (0-37); Blood Urea Nitrogen 129 MG/DL (7-18); Carbon Dioxide 17 MMOL/L (21-32); Chloride 102 MMOL/L (98-107); Glucose 108 MG/DL (74-106); Osmolality,Calculated 315.8 MOS/KG (273-304); Sodium 137 MMOL/L (136-145); Total Protein 6.1 G/DL (6.4-8.2)
[2021-12-10 20:11] LABS: Alkaline Phosphatase 971 U/L (45-117)
[2021-12-10 20:13] LABS: Potassium 6.6 MMOL/L (3.5-5.1)
[2021-12-10] MEDS ORDERED: INSULIN REGULAR 100 UNIT/ML IV STA (20:17)
[2021-12-10] MEDS ORDERED: DEXTROSE 50% 25 GM/50 ML VIAL IV STA (20:17)
[2021-12-10] MEDS ORDERED: PIPERACILLIN/TAZOBACTAM 3,375 MG in SODIUM CHLORIDE 0.9% 100 ML IV STA (21:09)
[2021-12-10 21:34] LABS: INR 3.9; PT Patient Result 39.5 SECS (10.1-12.1); Partial Thromboplastin Time 58.5 SECS (23.7-32.9)
[2021-12-10] MEDS ORDERED: DEXTROSE 50% 25 GM/50 ML SYRINGE IV ONE (21:42)
[2021-12-10] MEDS: NOREPINEPHRINE 8 MG in SODIUM CHLORIDE 0.9% 242 ML IV PRN (22:05)
[2021-12-10] MEDS ORDERED: PROMETHAZINE 25 MG/1 ML VIAL ONE (22:26)
[2021-12-10] MEDS ORDERED: PROMETHAZINE INJ 25 MG in SODIUM CHLORIDE 0.9% 50 ML IV STA (22:44)
[2021-12-10 23:03] VITALS: BP 130/84
[2021-12-10] MEDS ORDERED: MORPHINE 2 MG/1 ML SYRINGE IV PRN (23:07)
[2021-12-10] MEDS ORDERED: ONDANSETRON 4 MG/2 ML VIAL IV PRN (23:07)
[2021-12-10] MEDS ORDERED: ALBUTEROL 2.5 MG/3 ML NEB RESP TX PRN (23:07)
[2021-12-10] MEDS ORDERED: GLUCAGON 1 MG VIAL IM PRN (23:29)
[2021-12-11] MEDS: SODIUM CHLORIDE 0.9% 1,000 ML IV SCH ×3 (00:18→17:47)
[2021-12-11] MEDS: PANTOPRAZOLE 40 MG VIAL IV SCH ×2 (00:52→09:14)
[2021-12-11] MEDS: INSULIN LISPRO 100 UNIT/ML SUBCUT SCH ×5 (01:13→23:50)
[2021-12-11] MEDS: DEXTROSE 10% 250 ML BAG IV PRN ×3 (01:13→23:51)
[2021-12-11 04:30] LABS: Basophils % 0.2 % (0.0-0.8); Eosinophils % 0.1 % (0.00-10.9); Hematocrit 30.7 VOL% (35.7-47.0); Hemoglobin 9.9 GM/DL (12.0-16.0); Immature Granulocytes % 2.3 %; Immature Granulocytes Absolute 0.38 #; Lymphocytes # 1.9 10*3/uL (1.4-4.0); Lymphocytes % 11.6 % (21.3-54.2); Mean Corpuscular HGB Conc 32.2 GM/DL (32-36); Mean Corpuscular Volume 95.3 FL (87-102); Mean Platelet Volume 11.7 FL (9.6-12.0); Monocytes # 1.9 10*3/uL (0.11-0.8); NRBC # 0.07 10*3/uL; Neutrophils % 73.8 % (38.7-73.9); Platelet Count 131 T/CUMM (130-400); Red Blood Count 3.22 MC/CUMM (3.8-5.5); Red Cell Distribution Width 26.5 % (9.3-17.3); White Blood Count 16.2 T/CUMM (4-12)
[2021-12-11 04:38] LABS: INR 4.2; PT Patient Result 42.1 SECS (10.1-12.1)
[2021-12-11 04:51] LABS: Calcium 8.5 MG/DL (8.5-10.1); Osmolality,Calculated 311.7 MOS/KG (273-304); Potassium 5.8 MMOL/L (3.5-5.1); Thyroid Stimulating Hormone 0.629 uIU/ml (0.358-3.74)
[2021-12-11 04:53] LABS: Band Neutrophils 2 % (0-10); Lymphocytes 10 % (20-55); Platelet Estimate Adequate; Total Cells Counted 100
[2021-12-11] MEDS ORDERED: SODIUM ZIRCONIUM CYCLOSILICATE 10 GM PACK PO ONE (05:30)
[2021-12-11] MEDS: NOREPINEPHRINE 8 MG in SODIUM CHLORIDE 0.9% 242 ML IV PRN ×2 (08:39→19:15)
[2021-12-11] MEDS: SODIUM ZIRCONIUM CYCLOSILICATE 10 GM PACK PO SCH ×3 (09:16→20:10)
[2021-12-11] MEDS: MEROPENEM 500 MG in SODIUM CHLORIDE 0.9% 100 ML IV SCH (09:16)
[2021-12-11] MEDS ORDERED: SODIUM BICARBONATE 50 MEQ/50 ML VIAL IV ONE (09:19)
[2021-12-11] MEDS: HYDROCORTISONE 100 MG VIAL IV SCH ×2 (09:21→17:37)
[2021-12-12] MEDS: SODIUM CHLORIDE 0.9% 1,000 ML IV SCH ×2 (01:43→10:13)
[2021-12-12] MEDS: HYDROCORTISONE 100 MG VIAL IV SCH ×2 (01:46→09:05)
[2021-12-12 02:07] LABS: Basophils % 0.2 % (0.0-0.8); Hematocrit 29.9 VOL% (35.7-47.0); Hemoglobin 9.2 GM/DL (12.0-16.0); Immature Granulocytes % 4.5 %; Immature Granulocytes Absolute 0.85 #; Lymphocytes # 2.7 10*3/uL (1.4-4.0); Lymphocytes % 14.3 % (21.3-54.2); Mean Corpuscular HGB Conc 30.8 GM/DL (32-36); Mean Corpuscular Volume 101.4 FL (87-102); Mean Platelet Volume 11.5 FL (9.6-12.0); Monocytes # 2.1 10*3/uL (0.11-0.8); NRBC # 0.33 10*3/uL; Platelet Count 144 T/CUMM (130-400); Red Blood Count 2.95 MC/CUMM (3.8-5.5); Red Cell Distribution Width 27.4 % (9.3-17.3)
[2021-12-12 02:31] LABS: Burr Cells Few; Lymphocytes 17 % (20-55); Nucleated Red Blood Cells 4 /100 WBC (0-5); Platelet Estimate Decreased; Target Cells Few; Total Cells Counted 100
[2021-12-12 03:14] LABS: Albumin 1.3 G/DL (3.4-5.0); Calcium 8.1 MG/DL (8.5-10.1); Osmolality,Calculated 313.5 MOS/KG (273-304); Phosphorous 9.3 MG/DL (2.5-4.9)
[2021-12-12 03:16] LABS: Bilirubin,Total 14.6 MG/DL (0.20-1.00); Potassium 6.7 MMOL/L (3.5-5.1)
[2021-12-12] MEDS: NOREPINEPHRINE 8 MG in SODIUM CHLORIDE 0.9% 242 ML IV PRN (03:24)
[2021-12-12] MEDS ORDERED: SODIUM POLYSTYRENE SULFATE 15 GM/60 ML BOTTLE RECTAL ONE (03:30)
[2021-12-12] MEDS: INSULIN LISPRO 100 UNIT/ML SUBCUT SCH (05:55)
[2021-12-12 05:58] LABS: Arterial Base Excess iSTAT -21 MMOL/L (-2.5-2.5); Arterial Bicarbonate iSTAT 3.9 MMOL/L (20-26); Arterial O2 Saturation iSTAT 100 % (95-100); Arterial PCO2 iSTAT 10 MM HG (35-48); Arterial PO2 iSTAT 208 MM HG (80-95); Arterial Total CO2 iSTAT < 5 MMO/L (23-27); Arterial pH iSTAT 7.211 (7.35-7.45)
[2021-12-12] MEDS ORDERED: LORazepam 2 MG/1 ML VIAL IV ONE (06:30)
[2021-12-12] MEDS: MORPHINE 2 MG/1 ML SYRINGE IV PRN ×4 (08:40→10:08)
[2021-12-12] MEDS: SODIUM ZIRCONIUM CYCLOSILICATE 10 GM PACK PO SCH (08:53)
[2021-12-12] MEDS: PANTOPRAZOLE 40 MG VIAL IV SCH (09:03)
[2021-12-12] MEDS: MEROPENEM 500 MG in SODIUM CHLORIDE 0.9% 100 ML IV SCH (09:06)
[2021-12-12] MEDS: LORazepam 2 MG/1 ML VIAL IV PRN ×2 (09:31→10:09)
[2021-12-12] MEDS ORDERED: MIDAZOLAM 2 MG/2 ML VIAL IV PRN (09:33)
== END 2021-12-12 10:44 | disposition expired | DRG 435 ==
LOC: N.ED 17:19 → N.CC 23:07
PROVIDERS: ADMIT Internal Medicine; ATTEND Internal Medicine